=== PATIENT | female | born 1975 | race Caucasian/White ===

== ENCOUNTER 2016-08-16 09:01 | Outpatient (RCR) | payer MEDICARE, OTHER | END 2016-09-12 | LOC: M PT 09:01 | PROVIDERS: ATTEND Physician Assistant | DX: Z51.89 Encounter for other specified aftercare (principal); I89.0 Lymphedema, not elsewhere classified | CPT/HCPCS: 97164; G8978; G8979; G8980 ==

== ENCOUNTER 2016-11-06 08:58 | Outpatient (RCR) | payer MEDICARE, OTHER | END 2016-11-10 | LOC: M PT 08:58 | PROVIDERS: ATTEND Physician Assistant | DX: Z51.89 Encounter for other specified aftercare (principal); I89.0 Lymphedema, not elsewhere classified | CPT/HCPCS: 97162; G8978; G8979; G8980 ==

== ENCOUNTER 2017-07-13 10:00 | Outpatient (RCR) | payer MEDICARE | END 2017-08-12 | LOC: M PT 10:00 | DX: Z51.89 Encounter for other specified aftercare (principal); R59.1 Generalized enlarged lymph nodes | CPT/HCPCS: 97162 ==

== ENCOUNTER → 2018-01-11 | Outpatient (CLI) | payer MEDICARE | LOC: M PT 10:23 | DX: I89.0 Lymphedema, not elsewhere classified (principal) | CPT/HCPCS: 97162 ==

== ENCOUNTER → 2018-07-15 | Outpatient (CLI) | payer MEDICARE | LOC: M PT 10:06 | DX: I89.0 Lymphedema, not elsewhere classified (principal) | CPT/HCPCS: 97162 ==

== ENCOUNTER → 2018-08-27 | Outpatient (CLI) | payer MEDICARE | LOC: M PT 12:30 | PROVIDERS: ATTEND Physician Assistant | DX: I89.0 Lymphedema, not elsewhere classified (principal) ==

== ENCOUNTER → 2019-06-02 | Outpatient (CLI) | payer MEDICARE | LOC: M PT 12:05 | PROVIDERS: ATTEND Physician Assistant | DX: I89.0 Lymphedema, not elsewhere classified (principal) ==

== ENCOUNTER → 2019-12-02 | Outpatient (CLI) | payer MEDICARE | LOC: M PT 10:30 | PROVIDERS: ATTEND Physician Assistant | DX: I89.0 Lymphedema, not elsewhere classified (principal) ==

== ENCOUNTER → 2020-06-02 | Outpatient (CLI) | payer MEDICARE | LOC: M PT 09:14 | PROVIDERS: ATTEND Physician Assistant | DX: I89.0 Lymphedema, not elsewhere classified (principal) ==

== ENCOUNTER → 2020-07-01 | Outpatient (CLI) | payer MEDICARE ==
[~2020-07-01] MED LIST: AMMO12CR7 TOP; ARIP1TAB6 PO; CARB20TA PO; CLIN150C14 PO; CRES20TA2 PO; D31000TA2 PO; DEBR6.5S4 AD; DIVA250T67 PO; FAMO1TAB25 PO; FLEEENE12 PR; FLUT05CR TOP; HYDR-643 PO; LEVO25TA5 PO; LEVO50TA5 PO; MILKSUS3 PO; MUPI2OI TOP; OLAN15TA PO; TERB250T12 PO; TORS20TA2 PO; TRIA1CR80 TOP
== END ==
LOC: M LABSMTC 13:00
PROVIDERS: ATTEND Psychiatry & Neurology Neurology
DX: Z01.812 Encounter for preprocedural laboratory examination (principal); Z20.828 Contact with and (suspected) exposure to other viral communicable diseases

== ENCOUNTER 2020-07-06 07:35 | Outpatient (CLI) | payer MEDICARE, MEDICAID ==
[2020-07-06] MEDS ORDERED: MIDAZOLAM INJ 2MG/2ML VIAL (J2250 PER 1MG) As Ordered ONE ×2 (08:23→08:24)
[2020-07-06 09:54] VITALS: BP 115/65
--- NOTE | 2020-07-06 10:03 | REPVR ---
PROCEDURE INFORMATION: Exam: MR Head Without Contrast Exam date and time: 07/06/2020 7:40 AM Age: 45 years old Clinical indication: Other: Convulsions; Additional info: Unspecified convulsions TECHNIQUE: Imaging protocol: MR of the head without contrast. COMPARISON: No relevant prior studies available. FINDINGS: Brain: Examination reveals few tiny focal areas of increased T2 signal in bilateral frontal and parietal subcortical and deep white matter. These are nonspecific and could be secondary to chronic migraine headache, vasculitis, Lyme disease, demyelination and focal areas of chronic ischemia. No acute infarction, masses, midline shift or acute hemorrhage is seen. No acute intracranial abnormality is identified.There is no abnormal diffusion weighted signal intensity to suggest an acute ischemic event.The cortical farr / white matter interfaces are preserved throughout the brain.Intracranial flow voids are well maintained.Examination of the posterior fossa demonstrates no significant abnormality.On gradient echo imaging, no susceptibility changes are seen to represent parenchymal calcification or degraded blood products. Cerebral ventricles: The ventricular system is not dilated and is appropriate for the patient's age. Bones/joints: Unremarkable. Paranasal sinuses: Normal as visualized. No acute sinusitis. Mastoid air cells: Normal as visualized. No mastoid effusion. Orbits: Unremarkable. Soft tissues: Unremarkable. IMPRESSION: No acute infarction, masses or hemorrhage is seen. No acute intracranial abnormality is identified. Electronically signed by: Ramone Moser On 07/06/2020 10:03:20 AM
== END 2020-07-06 10:20 | disposition home or self-care (01) ==
LOC: M RAD 07:35
PROVIDERS: ATTEND Psychiatry & Neurology Neurology
DX: R56.9 Unspecified convulsions (principal)
CPT/HCPCS: 70551; J2250

== ENCOUNTER 2020-10-08 13:00 | Outpatient (RCR) | payer MEDICARE ==
[~2020-10-08 13:00] MED LIST changes: -CLIN150C14 PO; +CLIN150C15 PO
== END 2020-10-10 ==
LOC: M PT 13:00 → EDSTATUS 13:00
PROVIDERS: ATTEND Physician Assistant
DX: I89.0 Lymphedema, not elsewhere classified (principal)

== ENCOUNTER → 2020-11-10 | Outpatient (RCR) | payer MEDICARE | LOC: M PT 10-19 10:27 | PROVIDERS: ATTEND Physician Assistant | DX: I89.0 Lymphedema, not elsewhere classified (principal) ==

== ENCOUNTER 2020-11-30 11:58 | Outpatient (RCR) | payer MEDICARE | END 2020-12-10 | LOC: M PT 11:58 | PROVIDERS: ATTEND Physician Assistant | DX: I89.0 Lymphedema, not elsewhere classified (principal) ==

== ENCOUNTER 2021-02-16 10:20 | Outpatient (RCR) | payer MEDICARE ==
[~2021-02-16 10:20] MED LIST changes: +FAMO10TA50 PO; -FAMO1TAB25 PO; -OLAN15TA PO; +OLAN15TA13 PO
== END 2021-03-12 ==
LOC: M PT 10:20
PROVIDERS: ATTEND Physician Assistant
DX: I89.0 Lymphedema, not elsewhere classified (principal)

== ENCOUNTER 2021-04-13 00:05 | Inpatient (IN) | payer MEDICARE ==
[~2021-04-13] VITALS: Ht 157.5 cm; Wt 114.7 kg
[~2021-04-13 00:05] MED LIST changes: -CLIN150C15 PO; +CLIN150C17 PO
[2021-04-13 02:00] VITALS: BP 121/83
[2021-04-13] MEDS ORDERED: MIRALAX *UNIT DOSE* 17GM PACKET PO PRN (02:45)
[2021-04-13] MEDS ORDERED: DEXTROSE 50% 50 ML SYRINGE IV PRN (03:15)
[2021-04-13] MEDS ORDERED: GLUCOSE 4GM CHEW TABLET PO PRN (03:15)
[2021-04-13] MEDS ORDERED: GLUCAGON INJ 1MG VIAL SC PRN (03:15)
[2021-04-13 03:45] LABS: EOS % 0.7 % (0.0-3.0); HEMATOCRIT 35.4 % (36.0-47.0); HEMOGLOBIN 11.4 g/dl (12.0-15.5); MEAN CORPUSCULAR HEMOGLOBIN 28.6 pg (27.0-33.0); MEAN CORPUSCULAR HGB CONC 32.2 g/dl (32.0-36.5); MEAN CORPUSCULAR VOLUME 88.9 fl (80.0-96.0); MONO # 0.7 10^3/uL (0.0-0.8); MONO % 11.5 % (2.0-8.0); NEUTROPHILS % 52.4 % (36.0-66.0); RED BLOOD COUNT 3.98 10^6/uL (4.00-5.40); WHITE BLOOD COUNT 5.7 10^3/uL (4.0-10.0)
[2021-04-13 04:13] LABS: PLATELET COUNT, AUTOMATED 82 10^3/uL (150-450)
[2021-04-13 04:18] LABS: ALBUMIN 2.6 GM/DL (3.2-5.2); ALT/SGPT 46 U/L (12-78); BILIRUBIN,TOTAL 0.2 MG/DL (0.2-1.0); BLOOD UREA NITROGEN 10 MG/DL (7-18); CALCIUM LEVEL 9.1 MG/DL (8.5-10.1); CARBON DIOXIDE LEVEL 34 MEQ/L (21-32); CHLORIDE LEVEL 104 MEQ/L (98-107); CREATININE FOR GFR 0.68 MG/DL (0.55-1.30); GLOMERULAR FILTRATION RATE > 60.0 (>58); GLUCOSE, FASTING 68 MG/DL (70-100); MAGNESIUM LEVEL 2.1 MG/DL (1.8-2.4); POTASSIUM SERUM 4.3 MEQ/L (3.5-5.1); SODIUM LEVEL 141 MEQ/L (136-145); TOTAL PROTEIN 6.5 GM/DL (6.4-8.2)
[2021-04-13 06:00] VITALS: BP 110/60
[2021-04-13] MEDS ORDERED: FLUT05CR TOP (06:07)
[2021-04-13] MEDS ORDERED: MYLASSUD PO (06:07)
[2021-04-13] MEDS ORDERED: ABIL1TAB11 PO (06:07)
[2021-04-13] MEDS ORDERED: BISA10SU20 PR (06:07)
[2021-04-13] MEDS ORDERED: TORS10TA3 PO (06:07)
[2021-04-13] MEDS ORDERED: MILK400S19 PO (06:07)
[2021-04-13] MEDS ORDERED: OLAN7.5T8 PO (06:07)
[2021-04-13] MEDS ORDERED: FLEEENE12 PR (06:07)
[2021-04-13] MEDS ORDERED: NYST1POW9 TOP (06:07)
[2021-04-13] MEDS ORDERED: GUAI5EL PO (06:07)
[2021-04-13] MEDS ORDERED: DIVA250T67 PO (06:07)
[2021-04-13] MEDS ORDERED: VITA100054 PO (06:07)
[2021-04-13] MEDS ORDERED: CARB1TAB20 PO (06:07)
[2021-04-13] MEDS ORDERED: FAMO10TA52 PO (06:07)
[2021-04-13] MEDS ORDERED: ACET-907 PO (06:07)
[2021-04-13] MEDS ORDERED: HYDR-3363 PO ×2 (06:07)
[2021-04-13] MEDS ORDERED: ROSU20TA5 PO (06:07)
[2021-04-13] MEDS ORDERED: AMMO12LO TOP (06:07)
[2021-04-13] MEDS ORDERED: HOME MED LIST COMPLETE! XX SCH (06:10)
[2021-04-13] MEDS ORDERED: LACTIC ACID 12% LOTION 225 GM BTL TOP PRN (07:00)
[2021-04-13] MEDS ORDERED: BISACODYL 10 MG SUPP PR PRN (07:00)
[2021-04-13] MEDS ORDERED: FLUTICASONE 0.05% CREAM 30GM (CUTIVATE) TOP PRN (07:00)
[2021-04-13] MEDS ORDERED: hydrOXYzine 25 MG TAB PO PRN (07:00)
[2021-04-13] MEDS ORDERED: guaiFENesin SYRUP 200 MG/10 ML UDC PO PRN (07:00)
[2021-04-13] MEDS ORDERED: NYSTATIN 100,000 UNITS/GM TOPICAL PWD 15 GM TOP PRN (07:00)
[2021-04-13] MEDS ORDERED: MAALOX 30 ML SUSP *UDC PO PRN (07:00)
--- NOTE | 2021-04-13 07:04 | HPEPDOC ---
General Date of Admission Apr 13, 2021 at 02:00 Date of Service: Apr 13, 2021 Chief Complaint The patient is a 46-year-old female admitted with a reason for visit of Generalized Weakness. History of Present Illness Mrs. Bartholomew is a 46-year-old female with obesity, diabetes mellitus, and intellectual disability who is here for generalized weakness. Of note, she is nonverbal at baseline. Patient is doing physical therapy at [facility]. Today her left knee buckled and she fell on the floor. She fell on the floor a few more times and the staff asked her about her. Patient had pointed to her right leg. She refused to ambulate. She was brought to the ED for evaluation at [facility]. At [facility], CT head was negative. CT of the abdomen pelvis demonstrated urinary retention and constipation. Patient's UA is negative for UTI. Patient's work-up was fairly benign. [facility] is out of hospital beds, and the ED provider at [facility] did not feel comfortable discharging patient home. [facility] requested transfer. When I saw patient, she appeared comfortable. She is nonverbal although she is able to repeat the word "pain" when I said pain. There was no [facility] caregiver when I saw her. I was told they would come later in the morning. Patient will be placed in observation for generalized weakness. Home Medications Scheduled Aripiprazole (Abilify) 5 Mg Tablet, 5 MG PO DAILY, (Reported) Bisacodyl (Bisacodyl) 10 Mg Supp.rect, 10 MG RI ASDIRECTED, (Reported) AFTER 3RD DAY OF NO BM Carbamazepine (Carbamazepine) 200 Mg Tablet, 200 MG PO BID, (Reported) 0700, 1600 Cholecalciferol (Vitamin D3) (Vitamin D3) 25 Mcg Capsule, 25 MCG PO DAILY, (Reported) Divalproex Sodium (Divalproex Sodium) 250 Mg Tablet.dr, 750 MG PO BID, (Reported) 0730, 1600 Famotidine (Famotidine) 10 Mg Tablet, 10 MG PO BID, (Reported) 0730, 1600 Hydroxyzine HCl (Hydroxyzine HCl) 25 Mg Tablet, 25 MG PO BID, (Reported) Magnesium Hydroxide (Milk of Magnesia) 400 Mg/5 Ml Oral.susp, 2,400 MG PO ASDIRECTED, (Reported) AFTER 2ND DAY OF NO BM Olanzapine (Olanzapine) 7.5 Mg Tablet, 7.5 MG PO QHS, (Reported) Rosuvastatin Calcium (Rosuvastatin Calcium) 20 Mg Tablet, 20 MG PO QHS, (Rep orted) Sodium Phosphate,Stewart-Dibasic (Fleet Enema) 133 Ml Enema, 1 DALIA RI ASDIRECTED, (Reported) AFTER 4TH DAY OF NO BM Torsemide (Torsemide) 10 Mg Tablet, 20 MG PO BID, (Reported) Scheduled PRN Acetaminophen (Tylenol) 325 Mg Tablet, 650 MG PO Q4H PRN for PAIN/HEADACHE/FEVER, (Reported) Aluminum/Magnesium/Simeth (Mag-Al Plus Suspension) 30 Ml Oral.susp, 15 ML PO Q4H PRN for HEARTBURN/INDIGESTION, (Reported) Ammonium Lactate (Ammonium Lactate) 12% Lotion, 1 DOSE TOP BID PRN for DRY SKIN, (Reported) APPLY TO LOWER LEGS Fluticasone Propionate (Fluticasone Propionate 0.05%) 30 Gm Cream..g., 1 DOSE TOP BID PRN for PRURITIS, (Reported) Guaifenesin (Guaifenesin) 100 Mg/5 Ml Liquid, 10 ML PO Q4H PRN for COUGH, (Reported) Hydroxyzine HCl (Hydroxyzine HCl) 25 Mg Tablet, 25 MG PO TID PRN for ITCHING, (Reported) Nystatin (Nystatin Powder) 15 Gm Powder, 1 DOSE TOP TID PRN for RASH, (Reported) APPLY TO GROIN Allergies Coded Allergies: No Known Drug Allergies (Verified Allergy, Unknown, 04/13/21) Past Medical History Medical History 1. Gastroenteritis 2. GERD 3. Hypertension 4. Diabetes mellitus 5. Anemia 6. Seizure disorder 7. Mental retardation 8. Hyperlipidemia 9. Hypothyroidism Surgical History No known surgeries Family History Unable to obtain as patient is nonverbal Social History * Smoker: Denies Alcohol: Denies Drugs: denies A-FIB/CHADSVASC A-FIB History Current/History of A-Fib/PAF?: No Review of Systems Other systems Unable to obtain review of systems as patient is nonverbal Physical Examination General Exam: Positive: Alert Eye Exam: Negative: Sclera icteric ENT Exam: Positive: Atraumatic Chest Exam: Positive: Clear to auscultation; Negative: Rales, Rhonchi, Wheezing Heart Exam: Positive: Rate Normal, Regular Rhythm Abdomen Exam: Positive: Normal bowel sounds; Negative: Soft (Mild firmness), Tenderness Extremity Exam: Positive: Other (Legs swollen but no pitting edema) Neuro Exam: Positive: Other (Unable to assess as patient is essentially nonverbal) Psych Exam: Positive: Other (Unable to assess as patient is essentially nonverbal) Vital Signs Vital Signs Date Time Temp Pulse Resp B/P (MAP) Pulse Ox O2 Delivery O2 Flow Rate FiO2 04/13/21 02:00 97.3 80 16 121/83 (96) 98 Room Air Assessment/Plan Mrs. Bartholomew is a 46-year-old female with obesity, diabetes mellitus, and inte llectual disability who is here for generalized weakness. Patient refused to stand and was brought to the ED for evaluation. Work up was unrevealing except for acute urinary retention and constipation. Will order PT for evaluation. Patient will be straight cathed and bladder scanned q6h. She will be started on tamsulosin. In addition, will start patient on a bowel regimen. Plan / VTE VTE Prophylaxis Ordered?: Yes Plan Plan 1. Generalized weakness Possibly secondary to pain Acetaminophen schedule Physical therapy 2. Acute urinary retention Bladder scan demonstrated 959 mL Straight cath Start tamsulosin 3. Constipation Seen on CT abdomen pelvis from [place] Docusate sodium and MiraLAX 4. Diabetes mellitus Sliding scale insulin and hypoglycemic protocol Carbohydrate consistent diet 5. Hypothyroidism Continue levothyroxine Check TSH 6. Seizure disorder Continue carbamazepine and divalproex sodium 7. GERD Continue famotidine 8. Intellectual disability Patient is in [facility] Continue a proposal and olanzapine 9. DVT prophylaxis SCDs and teds Disposition: Pending PT eval and clinical improvement IRAIDA GARNER DO Apr 13, 2021 03:19
[2021-04-13] MEDS: HumaLOG INSULIN (NovoLOG) PER UNIT SC SCH ×4 (07:30→20:45)
[2021-04-13] MEDS: DIVALPROEX 250 MG TAB PO SCH ×2 (08:54→17:11)
[2021-04-13] MEDS: hydrOXYzine 25 MG TAB PO SCH ×2 (08:57→21:17)
[2021-04-13] MEDS: TORSEMIDE 10 MG TABLET PO SCH ×2 (08:57→21:17)
[2021-04-13] MEDS: DOCUSATE SODIUM 100MG CAPSULE PO SCH ×2 (08:57→21:17)
[2021-04-13] MEDS: TAMSULOSIN 0.4 MG CAP PO SCH (08:57)
[2021-04-13] MEDS: FAMOTIDINE 20 MG TAB PO SCH ×2 (08:58→17:11)
[2021-04-13 14:00] VITALS: BP 150/99
[2021-04-13] MEDS: carBAMazepine 200MG TABLET PO SCH (17:10)
[2021-04-13] MEDS: ROSUVASTATIN 10 MG TAB (CRESTOR) PO SCH (21:17)
[2021-04-13] MEDS: OLANZapine 2.5MG TABLET PO SCH (21:22)
[2021-04-13 22:00] VITALS: BP 137/96
[2021-04-14 06:00] VITALS: BP 145/108
[2021-04-14] MEDS: carBAMazepine 200MG TABLET PO SCH ×2 (06:20→15:51)
[2021-04-14] MEDS: HumaLOG INSULIN (NovoLOG) PER UNIT SC SCH ×4 (07:30→21:00)
[2021-04-14] MEDS: DIVALPROEX 250 MG TAB PO SCH ×2 (08:29→15:51)
[2021-04-14] MEDS: DOCUSATE SODIUM 100MG CAPSULE PO SCH (08:29)
[2021-04-14] MEDS: TAMSULOSIN 0.4 MG CAP PO SCH (08:30)
[2021-04-14] MEDS: FAMOTIDINE 20 MG TAB PO SCH ×2 (08:30→15:51)
[2021-04-14] MEDS: hydrOXYzine 25 MG TAB PO SCH ×2 (08:30→20:08)
[2021-04-14] MEDS: TORSEMIDE 10 MG TABLET PO SCH ×2 (08:35→20:08)
[2021-04-14] MEDS ORDERED: MAGNESIUM CITRATE 300 ML BTL PO ONE (11:05)
--- NOTE | 2021-04-14 11:46 | REP ---
INDICATION: abd pain. COMPARISON: None. TECHNIQUE: AP views abdomen and pelvis. FINDINGS: There is mild air and fecal material scattered throughout the colon. There is mild air scattered throughout multiple nondilated small bowel loops, with no compelling evidence for bowel obstruction. Mild air is seen in the stomach. A rounded calcification in the right upper quadrant likely represents a gallstone, measuring approximately 2.4 cm in diameter. There are mild degenerative changes of the spine and hips. There are multiple phleboliths in the pelvis. IMPRESSION: No compelling radiographic evidence of bowel obstruction. There appears to be a gallstone present in the right upper quadrant 2.4 cm in diameter. <Electronically signed by Tomás Cast > 04/14/21 [id number]
[2021-04-14] MEDS: MIRALAX *UNIT DOSE* 17GM PACKET PO SCH ×2 (12:04→20:08)
[2021-04-14 13:54] LABS: EOS % 0.3 % (0.0-3.0); HEMATOCRIT 31.7 % (36.0-47.0); HEMOGLOBIN 10.4 g/dl (12.0-15.5); LYMPH # 1.5 10^3/uL (1.5-5.0); MEAN CORPUSCULAR HEMOGLOBIN 29.5 pg (27.0-33.0); MEAN CORPUSCULAR HGB CONC 32.8 g/dl (32.0-36.5); MEAN CORPUSCULAR VOLUME 89.8 fl (80.0-96.0); MONO # 0.8 10^3/uL (0.0-0.8); MONO % 10.7 % (2.0-8.0); NEUTROPHILS # 4.7 10^3/uL (1.5-8.5); NEUTROPHILS % 66.3 % (36.0-66.0); RED BLOOD COUNT 3.53 10^6/uL (4.00-5.40)
[2021-04-14 13:55] LABS: PLATELET COUNT, AUTOMATED 91 10^3/uL (150-450)
[2021-04-14 14:00] VITALS: BP 128/85
[2021-04-14 14:30] LABS: ALBUMIN 2.5 GM/DL (3.2-5.2); ALT/SGPT 38 U/L (12-78); BILIRUBIN,TOTAL 0.3 MG/DL (0.2-1.0); BLOOD UREA NITROGEN 10 MG/DL (7-18); CARBON DIOXIDE LEVEL 34 MEQ/L (21-32); CHLORIDE LEVEL 105 MEQ/L (98-107); CREATININE FOR GFR 0.74 MG/DL (0.55-1.30); FREE THYROXINE INDEX 3.2 % (1.3-4.8); GLOMERULAR FILTRATION RATE > 60.0 (>58); GLUCOSE, FASTING 136 MG/DL (70-100); SODIUM LEVEL 142 MEQ/L (136-145); T UPTAKE 34 % (30-39); THYROXINE (T4) 9.5 UG/DL (4.5-12.0); TOTAL PROTEIN 6.3 GM/DL (6.4-8.2)
--- NOTE | 2021-04-14 18:44 | IPN ---
PROGRESS NOTE DATE: 04/14/2021 SUBJECTIVE: Review of system could not be done since the patient is nonverbal. [facility] staff at the bedside attempted to obtain a review of systems. The patient was able to point to where she has been pain, which is in the epigastric area, right upper quadrant. The patient has not had a bowel movement in several days, but no nausea or vomiting; tolerating her diet. OBJECTIVE: Physical examination: Temperature 97.6, pulse 92, respiratory rate 18, blood pressure 145/108, 95% on room air. General: The patient is nonverbal, awake, alert, oriented. Grimaces to pain. Has purposeful movement. Communicates by pointing. Lungs are clear to auscultation. No wheezing, rales or rhonchi. Heart: S1, S2, sinus rhythm. No murmurs, rubs or gallops. Abdomen is soft, slightly tender epigastric region. No rebound guarding. Positive bowel sounds in all four quadrants, non-distended. Extremities: No pitting edema, but chronic swelling. LABORATORY DATA: Complete blood count (CBC), metabolic panel, thyroid function tests all reviewed. ASSESSMENT AND PLAN: This is a 46-year-old nonverbal female with history of intellectual disability, type 2 diabetes, obesity, fell on the floor a few times, sent over to [facility], they had no beds. She was found to have constipation and urinary retention and transferred to [facility] for further evaluation due to no bed availability at [facility] ACTIVE ISSUES: 1. Recurrent falls. 2. Constipation. 3. Cholelithiasis with normal liver function tests. 4. Abnormal TSH, awaiting thyroid function test. 5. Type 2 diabetes. 6. Hypertension, uncontrolled 7. Hyperlipidemia. 8. Hypothyroidism. PLAN: Await thyroid function test. Adjust the patient's Synthroid. Bowel regimen. Obtain ultrasound of the gallbladder in the morning, n.p.o. after midnight. Physical therapy (PT)/occupational therapy (OT) evaluation.
[2021-04-14] MEDS: ROSUVASTATIN 10 MG TAB (CRESTOR) PO SCH (20:08)
[2021-04-14] MEDS: OLANZapine 2.5MG TABLET PO SCH (20:09)
[2021-04-14] MEDS: SENOKOT S TAB PO SCH (20:09)
[2021-04-14 22:00] VITALS: BP 132/71
[2021-04-15 06:00] VITALS: BP 133/69
[2021-04-15] MEDS: carBAMazepine 200MG TABLET PO SCH (06:03)
[2021-04-15] MEDS: HumaLOG INSULIN (NovoLOG) PER UNIT SC SCH ×2 (07:30→13:14)
--- NOTE | 2021-04-15 08:12 | REPVR ---
PROCEDURE INFORMATION: Exam: US Abdomen, Limited; Right Upper Quadrant Exam date and time: 04/15/2021 6:29 AM Age: 46 years old Clinical indication: Abdominal pain; Epigastric; Additional info: Abd pain gallstone R/O cholecystitis TECHNIQUE: Imaging protocol: US abdomen. Real time ultrasound with image documentation. Limited exam focused on the right upper quadrant. COMPARISON: No relevant prior studies available. FINDINGS: Liver: The liver is homogeneous in echotexture. No demonstrated mass or intrahepatic biliary ductal dilatation. Gallbladder: The gallbladder contains multiple stones. Its wall is not significantly thickened, and there is no significant pericholecystic fluid. Sonographic Lynn sign is reportedly negative. Common bile duct: The common bile duct is normal in size for a patient of this age at 5 mm. Pancreas: The pancreas is largely obscured by overlying bowel gas. Right kidney: The right kidney measures 11.0 x 5.1 x 4.4 cm. Normal appearing echotexture. There is no hydronephrosis or demonstrated renal stone, cyst or mass. IMPRESSION: Cholelithiasis without sonographic evidence of cholecystitis. Electronically signed by: Sriram Valencia On 04/15/2021 08:12:01 AM
[2021-04-15] MEDS ORDERED: MAGNESIUM CITRATE 300 ML BTL PO ONE (08:15)
[2021-04-15] MEDS: DIVALPROEX 250 MG TAB PO SCH (08:51)
[2021-04-15] MEDS: hydrOXYzine 25 MG TAB PO SCH (08:51)
[2021-04-15] MEDS: SENOKOT S TAB PO SCH (08:52)
[2021-04-15] MEDS: TAMSULOSIN 0.4 MG CAP PO SCH (08:52)
[2021-04-15] MEDS: FAMOTIDINE 20 MG TAB PO SCH (08:52)
[2021-04-15] MEDS: MIRALAX *UNIT DOSE* 17GM PACKET PO SCH (08:52)
[2021-04-15] MEDS: TORSEMIDE 10 MG TABLET PO SCH (09:05)
[2021-04-15] MEDS ORDERED: SENN-52 PO (10:53)
[2021-04-15] MEDS ORDERED: FLOM0.4C39 PO (10:53)
[2021-04-15] MEDS ORDERED: MILKSUS3 PO (10:55)
[2021-04-15] MEDS ORDERED: MIRA1POW3 PO (10:55)
--- NOTE | 2021-04-15 11:17 | DS.PDOC ---
Discharge Summary General Date of Admission Apr 13, 2021 at 02:00 Date of Discharge 04/15/21 Discharge Summary DISCHARGE DIAGNOSES: 1. Recurrent falls. 2. Constipation. 3. Cholelithiasis with normal liver function tests. 4. Abnormal TSH, awaiting thyroid function test. 5. Type 2 diabetes. 6. Hypertension, uncontrolled 7. Hyperlipidemia. 8. Hypothyroidism. 9. Urine retention DISCHARGE MEDICATIONS: SEE BELOW DISCHARGE INSTRUCTIONS: PCP TO REFER TO UROLOGY FOR URINE RETENTION. PCP 5DAY FU HOSPITAL COURSE: This is a 46-year-old nonverbal female with history of intellectual disability, type 2 diabetes, obesity, fell on the floor a few times, sent over to [facility], they had no beds. She was found to have constipation and urinary retention and transferred to [facility] for further evaluation due to no bed availability at [facility]. Pt was given a bowel regimen and had 3 bowel mvt on the first day of admission. she had urine retention and was started onflomax, and was able to urinate 500ml out on her own. PT/OT evaluted and treated her. Repeat AXR: no constipation. pt was discharged in stable condition. VITALS: SEE BELOW General: The patient is nonverbal, awake, alert, oriented. Grimaces to pain. Has purposeful movement. Communicates by pointing. Lungs are clear to auscultation. No wheezing, rales or rhonchi. Heart: S1, S2, sinus rhythm. No murmurs, rubs or gallops. Abdomen is soft, slightly tender epigastric region. No rebound guarding. Positive bowel sounds in all four quadrants, non-distended. Extremities: No pitting edema, but chronic swelling. LABORATORY DATA: Complete blood count (CBC), metabolic panel, thyroid function tests all reviewed. TIME SPENT ON DISCHARGE: 30 MIN Vital Signs/I&Os Vital Signs Date Time Temp Pulse Resp B/P (MAP) Pulse Ox O2 Delivery O2 Flow Rate FiO2 04/15/21 06:00 98.0 92 20 133/69 (90) 94 Room Air I&O- Last 24 Hours up to 6 AM 04/15/21 06:00 Intake Total 1860 ml Output Total 2250 ml Balance -390 ml Laboratory Data Labs 24H Laboratory Tests 2 04/14/21 11:53: Bedside Glucose (Misc Panel) 78 04/14/21 13:35: Immature Granulocyte % (Auto) 0.7, Neutrophils (%) (Auto) 66.3H, Lymphocytes (%) (Auto) 22.0L, Monocytes (%) (Auto) 10.7H, Eosinophils (%) (Auto) 0.3, Basophils (%) (Auto) 0.0, Neutrophils # (Auto) 4.7, Lymphocytes # (Auto) 1.5, Monocytes # (Auto) 0.8, Eosinophils # (Auto) 0.0, Basophils # (Auto) 0.0, Nucleated Red Blood Cells % (auto) 0.0, Immature Platelet Fraction 8.0, Anion Gap 3L, Glomerul ar Filtration Rate > 60.0, Calcium Level 9.0, Total Bilirubin 0.3, Aspartate Amino Transf (AST/SGOT) 25, Alanine Aminotransferase (ALT/SGPT) 38, Alkaline Phosphatase 114, Total Protein 6.3L, Albumin 2.5L, Albumin/Globulin Ratio 0.7L, Thyroid Stimulating Hormone (TSH) 3.730, Free Thyroxine Index 3.2, Thyroxine (T4) 9.5, Triiodothyronine (T3) Uptake 34 04/14/21 16:22: Bedside Glucose (Misc Panel) 123H 04/14/21 19:59: Bedside Glucose (Misc Panel) 187H 04/15/21 07:43: Bedside Glucose (Misc Panel) 78 CBC/BMP Laboratory Tests 04/14/21 13:35 FSBS Laboratory Tests Test 04/14/21 11:53 04/14/21 16:22 04/14/21 19:59 04/15/21 07:43 Range/Units Bedside Glucose (Misc Panel) 78 123 187 78 70-105 MG/DL Discharge Medications Scheduled Aripiprazole (Abilify) 5 Mg Tablet, 5 MG PO DAILY, (Reported) Carbamazepine (Carbamazepine) 200 Mg Tablet, 200 MG PO BID, (Reported) 0700, 1600 Cholecalciferol (Vitamin D3) (Vitamin D3) 25 Mcg Capsule, 25 MCG PO DAILY, (Reported) Divalproex Sodium (Divalproex Sodium) 250 Mg Tablet.dr, 750 MG PO BID, (Reported) 0730, 1600 Famotidine (Famotidine) 10 Mg Tablet, 10 MG PO BID, (Reported) 0730, 1600 Hydroxyzine HCl (Hydroxyzine HCl) 25 Mg Tablet, 25 MG PO BID, (Reported) Olanzapine (Olanzapine) 7.5 Mg Tablet, 7.5 MG PO QHS, (Reported) Polyethylene Glycol 3350 (Miralax) 17 Gm Powd.pack, 17 GM PO BID Rosuvastatin Calcium (Rosuvastatin Calcium) 20 Mg Tablet, 20 MG PO QHS, (Report ed) Sennosides/Docusate Sodium (Senna Plus Tablet) 1 Each Tablet, 2 TAB PO BID Tamsulosin HCl (Flomax) 0.4 Mg Capsule, 0.4 MG PO DAILY Torsemide (Torsemide) 10 Mg Tablet, 20 MG PO BID, (Reported) Scheduled PRN Acetaminophen (Tylenol) 325 Mg Tablet, 650 MG PO Q4H PRN for PAIN/HEADACHE/FEVER, (Reported) Aluminum/Magnesium/Simeth (Mag-Al Plus Suspension) 30 Ml Oral.susp, 15 ML PO Q4H PRN for HEARTBURN/INDIGESTION, (Reported) Ammonium Lactate (Ammonium Lactate) 12% Lotion, 1 DOSE TOP BID PRN for DRY SKIN, (Reported) APPLY TO LOWER LEGS Fluticasone Propionate (Fluticasone Propionate 0.05%) 30 Gm Cream..g., 1 DOSE TOP BID PRN for PRURITIS, (Reported) Guaifenesin (Guaifenesin) 100 Mg/5 Ml Liquid, 10 ML PO Q4H PRN for COUGH, (Reported) Hydroxyzine HCl (Hydroxyzine HCl) 25 Mg Tablet, 25 MG PO TID PRN for ITCHING, (R eported) Magnesium Hydroxide (Milk of Magnesia) 400 Mg/5 Ml Oral.susp, 5 ML PO BIDP PRN for cons Nystatin (Nystatin Powder) 15 Gm Powder, 1 DOSE TOP TID PRN for RASH, (Reported) APPLY TO GROIN Allergies Coded Allergies: No Known Drug Allergies (Verified Allergy, Unknown, 04/13/21) ANGELA THORPE MD Apr 15, 2021 11:17
== END 2021-04-15 13:40 | disposition home or self-care (01) | DRG 93 ==
LOC: M MSPAV 02:00 → INTOOBSV 02:00 → OBSVTOIN 04-14 11:02 → UNDODISOB 04-15 13:40
PROVIDERS: ADMIT Internal Medicine; ATTEND General Practice
DX: R29.6 Repeated falls (principal); K59.00 Constipation, unspecified; K80.20 Calculus of gallbladder without cholecystitis without obstruction; R94.6 Abnormal results of thyroid function studies; E11.9 Type 2 diabetes mellitus without complications; I10 Essential (primary) hypertension; E78.5 Hyperlipidemia, unspecified; E03.9 Hypothyroidism, unspecified; R33.9 Retention of urine, unspecified; K21.9 Gastro-esophageal reflux disease without esophagitis; F79 Unspecified intellectual disabilities; F80.1 Expressive language disorder; D64.9 Anemia, unspecified; G40.909 Epilepsy, unspecified, not intractable, without status epilepticus; Z79.899 Other long term (current) drug therapy

== ENCOUNTER 2021-05-02 10:24 | Outpatient (RCR) | payer MEDICARE ==
[~2021-05-02 10:24] MED LIST changes: +ABIL1TAB11 PO; +ACET-907 PO; +AMMO12LO TOP; +BISA10SU20 PR; +CARB1TAB20 PO; +FAMO10TA52 PO; +FLOM0.4C39 PO; +GUAI5EL PO; +HYDR-3363 PO; +MILK400S19 PO; +MIRA1POW3 PO; +MYLASSUD PO; +NYST1POW9 TOP; +OLAN7.5T8 PO; +ROSU20TA5 PO; +SENN-52 PO; +TORS10TA3 PO; +VITA100054 PO
== END 2021-05-12 ==
LOC: M PT 10:24
PROVIDERS: ATTEND Physician Assistant
DX: I89.0 Lymphedema, not elsewhere classified (principal)

== ENCOUNTER → 2021-05-09 | Outpatient (CLI) | payer MEDICARE, MEDICAID ==
--- NOTE | 2021-05-09 12:10 | REP ---
INDICATION: URINARY RETENTION. COMPARISON: None. TECHNIQUE: Real-time sonographic evaluation of the kidneys with Doppler FINDINGS: Multiple ultrasonographic images of the right kidney show the right kidney to measure 10 x 4.5 x 5.9 cm. The renal cortical echotexture is unremarkable. There are no masses. There is good corticomedullary differentiation. There is no hydronephrosis. There are no perinephric fluid collections. Multiple ultrasonographic images of the left kidney show the left kidney to measure 10 x 5.6 x 5.7 cm. The renal cortical echotexture is unremarkable. There are no masses. There is good corticomedullary differentiation. There is no hydronephrosis. There are no perinephric fluid collections. IMPRESSION: Unremarkable renal ultrasonography. <Electronically signed by Richard Rodriguez > 05/09/21 [id number]
--- NOTE | 2021-05-09 12:22 | REP ---
INDICATION: URINARY RETENTION. COMPARISON: None. TECHNIQUE: Transabdominal scanning is performed. The patient could not be persuaded to empty her bladder after the filled images were acquired and thus postvoid imaging could not be accomplished. FINDINGS: Filled views of the bladder show a smooth bladder cortez. No intravesical or extravesical lesion is seen. Prevoid bladder volume is normal calculated at 485 mL. IMPRESSION: Normal limited bladder sonography. Postvoid images could not be obtained. <Electronically signed by Froy Arvizu > 05/09/21 4000
== END ==
LOC: M RAD 11:30
PROVIDERS: ATTEND Nurse Practitioner Women's Health
DX: R33.9 Retention of urine, unspecified (principal)

== ENCOUNTER 2021-08-01 15:13 | Outpatient (RCR) | payer MEDICARE ==
[~2021-08-01 15:13] MED LIST changes: -TERB250T12 PO; +TERB250T91 PO
== END 2021-08-12 ==
LOC: M PT 15:13
PROVIDERS: ATTEND Physician Assistant
DX: I89.0 Lymphedema, not elsewhere classified (principal)

== ENCOUNTER 2021-08-26 10:47 | Outpatient (RCR) | payer MEDICARE | END 2021-09-12 | LOC: M PT 10:47 | PROVIDERS: ATTEND Physician Assistant | DX: I89.0 Lymphedema, not elsewhere classified (principal) ==

== ENCOUNTER → 2022-02-17 | Outpatient (CLI) | payer MEDICARE ==
[~2022-02-17] MED LIST changes: -D31000TA2 PO; +VITA100093 PO
== END ==
LOC: M PLAIMG 13:57
PROVIDERS: ATTEND Psychiatry & Neurology Neurology
DX: M54.16 Radiculopathy, lumbar region (principal); Z53.9 Procedure and treatment not carried out, unspecified reason

== ENCOUNTER 2022-03-06 15:45 | Outpatient (RCR) | payer MEDICARE | END 2022-03-12 | LOC: M PT 15:45 | PROVIDERS: ATTEND Physician Assistant | DX: I89.0 Lymphedema, not elsewhere classified (principal) ==

== ENCOUNTER → 2022-06-06 | Outpatient (CLI) | payer MEDICARE | LOC: M PLAIMG 10:05 | PROVIDERS: ATTEND Psychiatry & Neurology Neurology | DX: M54.16 Radiculopathy, lumbar region (principal) ==

== ENCOUNTER 2022-06-09 15:00 | Outpatient (RCR) | payer MEDICARE | END 2022-06-12 23:59 | disposition home or self-care (01) | LOC: M PT 15:00 | PROVIDERS: ATTEND Physician Assistant | DX: I89.0 Lymphedema, not elsewhere classified (principal) ==

== ENCOUNTER → 2022-07-02 | Outpatient (CLI) | payer MEDICARE | LOC: M LABSMTC 11:23 | PROVIDERS: ATTEND Anesthesiology | DX: Z01.812 Encounter for preprocedural laboratory examination (principal); Z11.52 Encounter for screening for COVID-19 ==

== ENCOUNTER → 2022-07-04 | Outpatient (CLI) | payer MEDICARE ==
[2022-07-04 13:00] VITALS: BP 119/65
== END ==
LOC: M SDC 10:44
PROVIDERS: ATTEND Psychiatry & Neurology Neurology
DX: M54.16 Radiculopathy, lumbar region (principal)

== ENCOUNTER 2022-07-11 11:58 | Outpatient (RCR) | payer MEDICARE | END 2022-07-12 | LOC: M PT 11:58 | PROVIDERS: ATTEND Physician Assistant | DX: I89.0 Lymphedema, not elsewhere classified (principal) ==

== ENCOUNTER → 2022-07-30 | Outpatient (CLI) | payer MEDICARE | LOC: M LABSMTC 10:30 | PROVIDERS: ATTEND Anesthesiology | DX: Z11.52 Encounter for screening for COVID-19 (principal) ==

== ENCOUNTER → 2022-08-01 | Outpatient (CLI) | payer MEDICARE ==
[~2022-08-01] MED LIST changes: +PROHANCE 279.3MG/ML 15ML VIAL As Ordered ONE; +PROHANCE 279.3MG/ML 5ML VIAL As Ordered ONE; +propofoL 200 MG/20 ML VIAL ONE
[2022-08-01 13:15] VITALS: BP 111/71
== END ==
LOC: M RAD 10:19
PROVIDERS: ATTEND Nurse Practitioner Family
DX: R13.10 Dysphagia, unspecified (principal); Z74.09 Other reduced mobility
CPT/HCPCS: 70553; A9576

== ENCOUNTER 2023-02-07 12:47 | Outpatient (RCR) | payer MEDICARE ==
[~2023-02-07 12:47] MED LIST changes: -PROHANCE 279.3MG/ML 15ML VIAL As Ordered ONE; -PROHANCE 279.3MG/ML 5ML VIAL As Ordered ONE; -ROSU20TA5 PO; +ROSU20TA61 PO; -propofoL 200 MG/20 ML VIAL ONE
== END 2023-02-09 ==
LOC: M PT 12:47
PROVIDERS: ATTEND Physician Assistant
DX: I89.0 Lymphedema, not elsewhere classified (principal)

== ENCOUNTER 2023-08-10 10:20 | Outpatient (RCR) | payer MEDICARE | END 2023-08-12 | LOC: M PT 10:20 | PROVIDERS: ATTEND Physician Assistant | DX: I89.0 Lymphedema, not elsewhere classified (principal) ==

== ENCOUNTER 2024-02-15 10:42 | Outpatient (RCR) | payer MEDICARE ==
[~2024-02-15 10:42] MED LIST changes: -BISA10SU20 PR; +BISA10SU59 PR; -MIRA1POW3 PO; +MIRA33506 PO
== END 2024-03-12 ==
LOC: M PT 10:42
PROVIDERS: ATTEND Physician Assistant
DX: I89.0 Lymphedema, not elsewhere classified (principal)

== ENCOUNTER 2024-06-04 08:41 | Outpatient (RCR) | payer MEDICARE ==
[~2024-06-04 08:41] MED LIST changes: -OLAN15TA13 PO; +OLAN15TA69 PO; -ROSU20TA61 PO; +ROSU20TA86 PO
== END 2024-06-12 ==
LOC: M PT 08:41
PROVIDERS: ATTEND Physician Assistant
DX: I89.0 Lymphedema, not elsewhere classified (principal)

== ENCOUNTER 2024-09-10 13:27 | Outpatient (RCR) | payer MEDICARE ==
[~2024-09-10 13:27] MED LIST changes: +NYST1POW3 TOP; -NYST1POW9 TOP
== END 2024-09-12 ==
LOC: M PT 13:27
PROVIDERS: ATTEND Physician Assistant
DX: I89.0 Lymphedema, not elsewhere classified (principal)

== ENCOUNTER 2025-03-16 14:06 | Outpatient (RCR) | payer MEDICARE ==
[~2025-03-16 14:06] MED LIST changes: +AMMO12CR4 TOP; -AMMO12CR7 TOP; +CHOL25CA2 PO; -FLOM0.4C39 PO; +MAG30ORA18 PO; -MYLASSUD PO; +OLAN7.5T38 PO; -OLAN7.5T8 PO; +TAMS-18 PO; -VITA100054 PO
== END 2025-04-12 ==
LOC: M PT 14:06
PROVIDERS: ATTEND Physician Assistant
DX: I89.0 Lymphedema, not elsewhere classified (principal)

== ENCOUNTER 2025-06-17 14:46 | Outpatient (RCR) | payer MEDICARE, MEDICAID ==
[~2025-06-17 14:46] MED LIST changes: +CARB-19 PO; -CARB1TAB20 PO; -CHOL25CA2 PO; +D3 H10003 PO
== END 2025-07-12 ==
LOC: M PT 14:46
PROVIDERS: ATTEND Physician Assistant
DX: I89.0 Lymphedema, not elsewhere classified (principal)

== ENCOUNTER 2025-07-24 14:15 | Outpatient (RCR) | payer MEDICARE, MEDICAID | END 2025-08-12 | LOC: M PT 14:15 | PROVIDERS: ATTEND Physician Assistant | DX: I89.0 Lymphedema, not elsewhere classified (principal) ==